=== PATIENT | female | born 1955 | race Hispanic/Latino ===

== ENCOUNTER → 2020-05-22 | Outpatient (CLI) | payer OTHER | LOC: MRI 08:52 | PROVIDERS: ATTEND Physician Assistant | DX: M54.42 Lumbago with sciatica, left side (principal); M54.41 Lumbago with sciatica, right side | CPT/HCPCS: 72148 ==

== ENCOUNTER 2022-05-09 12:38 | Inpatient (IN) | payer OTHER ==
[2022-05-06 09:18] LABS: BASOPHILS # (AUTO) 0.1 (0.0-0.1); BASOPHILS % 0.9 % (0.0-1.0); EOSINOPHILS # (AUTO) 0.3 (0.0-0.4); EOSINOPHILS % 4.9 % (0.0-6.0); HEMATOCRIT 42.4 % (34.2-44.1); HEMOGLOBIN 12.9 g/dL (12.0-16.0); LYMPHOCYTES # (AUTO) 2.2 (1.0-3.2); LYMPHOCYTES % 34.9 % (18.0-39.1); MEAN CORPUSCULAR HGB CONC 30.4 g/dL (31-35); MEAN CORPUSCULAR VOLUME 98.6 fL (81-99); MONOCYTES # (AUTO) 0.5 (0.2-0.8); MONOCYTES % 8.3 % (4.4-11.3); NEUTROPHILS # (AUTO) 3.2 (2.1-6.9); NEUTROPHILS % 50.1 % (38.7-80.0); PLATELET COUNT 246 x10e3/uL (140-360); RED CELL DISTRIBUTION WIDTH 13.9 % (11.7-14.4)
[2022-05-06 09:33] LABS: ANION GAP 15.2 mmol/L (8-16); CALCIUM 9.5 mg/dL (8.4-10.2); CREATININE, SERUM 0.75 mg/dL (0.57-1.11); POTASSIUM 4.2 mmol/L (3.5-5.1)
[~2022-05-09] VITALS: Ht 157.5 cm; Wt 82.6 kg
[~2022-05-09 12:38] MED LIST: BACITRACIN ZINC 15 GM OINT ONE; BUPIVACAINE/EPINEPHRINE 0.5% 10 ML SDV INJ ONE; DEXAMETHASONE SOD PHOS INJ 4 MG/ML SDV ONE; FAMOTIDINE20 MG PO; FENTANYL CITRATE/PF 100MCG/2 ML INJ ONE; GENTAMICIN SULFATE 40 MG/ML 2 ML VIAL ONE; GLYCOPYRROLATE INJ 0.2 MG/ML VIAL ONE; IOPAMIDOL 610MG/1ML 300 MG/ML VIAL IV ONE; LIDOCAINE HCL 2% LOCAL 20 ML VIAL ONE; LIDOCAINE HCL 2% LOCAL INJ 5 ML SDV VIAL INJ ONE; LISINOPRIL10 MG PO; METOPROLOL SUCC25 MG PO; MIDAZOLAM HCL 2 MG/2 ML VIAL ONE; NEOSTIGMINE 1 MG/ML 10ML VIAL ONE; ONDANSETRON HCL INJ 2MG/ML 2ML 2 MG/ML VIAL ONE; OXYBUTYNIN CHLOR5 MG PO; PHENYLEPHRINE HCL 1% 10 MG/ML VIAL ONE; POVIDONE IODINE 0.05% 0.05 % ML PO ONE; PROPOFOL IV EMULSION 10 MG/ML 20 ML VIAL ONE; PROTONIX20 MG PO; ROCURONIUM BROMIDE 10 MG/ML 5ML VIAL IV ONE; SEVOFLURANE INHAL SOLN 250 ML PEN BTL ONE; SUCCINYLCHOLINE CHLORIDE 20 MG/ML 10ML VIAL ONE
[2022-05-09] MEDS ORDERED: GENTAMICIN 80MG/NS 100 ML 200 ML IV ONE (13:01)
[2022-05-09] MEDS ORDERED: PIPERACILLIN/TAZOBACTAM 3.375 GM VIAL ONE (13:01)
[2022-05-09] MEDS ORDERED: FAMOTIDINE 20 MG/2 ML VIAL IV ONE (13:30)
[2022-05-09] MEDS ORDERED: DIPHENHYDRAMINE HCL 25 MG CAP PO PRN (13:45)
[2022-05-09] MEDS ORDERED: Morphine 2mg Syringe 2 MG/ML SYR IV PRN (13:45)
[2022-05-09] MEDS ORDERED: ONDANSETRON HCL INJ 2MG/ML 2ML 2 MG/ML VIAL IV PRN (13:45)
[2022-05-09] MEDS ORDERED: SUGAMMADEX SODIUM 200 MG/2 ML VIAL IV ONE (14:39)
[2022-05-09] MEDS ORDERED: HYDROMORPHONE 1MG/1ML INJ ONE (14:39)
[2022-05-09 16:05] LABS: BASOPHILS # (AUTO) 0.1 (0.0-0.1); BASOPHILS % 0.5 % (0.0-1.0); EOSINOPHILS # (AUTO) 0.2 (0.0-0.4); EOSINOPHILS % 1.8 % (0.0-6.0); HEMATOCRIT 41.5 % (34.2-44.1); HEMOGLOBIN 12.4 g/dL (12.0-16.0); LYMPHOCYTES # (AUTO) 2.3 (1.0-3.2); LYMPHOCYTES % 23.8 % (18.0-39.1); MEAN CORPUSCULAR HEMOGLOBIN 29.8 pg (28-32); MEAN CORPUSCULAR HGB CONC 29.9 g/dL (31-35); MEAN CORPUSCULAR VOLUME 99.8 fL (81-99); MONOCYTES # (AUTO) 0.3 (0.2-0.8); MONOCYTES % 2.7 % (4.4-11.3); NEUTROPHILS # (AUTO) 6.9 (2.1-6.9); NEUTROPHILS % 70.2 % (38.7-80.0); PLATELET COUNT 234 x10e3/uL (140-360); RED BLOOD COUNT 4.16 x10e6/uL (3.6-5.1); RED CELL DISTRIBUTION WIDTH 13.7 % (11.7-14.4)
[2022-05-09 16:15] VITALS: BP 110/67
[2022-05-09 16:16] LABS: ANION GAP 14.1 mmol/L (8-16); CALCIUM 8.5 mg/dL (8.4-10.2); CREATININE, SERUM 0.67 mg/dL (0.57-1.11); POTASSIUM 4.1 mmol/L (3.5-5.1)
[2022-05-09] MEDS: D5.45%NS/KCL 20MEQ 1,000 ML IV SCH (16:46)
[2022-05-09] MEDS ORDERED: DOCUSATE SODIUM 100 MG CAP PO SCH (17:00)
[2022-05-09 20:00] VITALS: BP 90/51
[2022-05-09] MEDS: DOCUSATE SODIUM 100 MG CAP PO SCH (21:17)
[2022-05-09] MEDS: ACETAMINOPHEN 1000 MG/100 ML IV PRN (21:27)
[2022-05-10] MEDS: ACETAMINOPHEN/CODEINE 300MG - 30MG TAB PO PRN ×2 (01:05→21:12)
[2022-05-10] MEDS: PHENAZOPYRIDINE HCL 100 MG TAB PO PRN (01:05)
[2022-05-10] MEDS: D5.45%NS/KCL 20MEQ 1,000 ML IV SCH ×2 (03:47→21:10)
[2022-05-10 05:10] LABS: BASOPHILS % 0.2 % (0.0-1.0); LYMPHOCYTES # (AUTO) 0.9 (1.0-3.2); LYMPHOCYTES % 7.2 % (18.0-39.1); MEAN CORPUSCULAR HEMOGLOBIN 30.1 pg (28-32); MEAN CORPUSCULAR HGB CONC 32.4 g/dL (31-35); MEAN CORPUSCULAR VOLUME 93.2 fL (81-99); MONOCYTES # (AUTO) 0.6 (0.2-0.8); MONOCYTES % 4.8 % (4.4-11.3); NEUTROPHILS # (AUTO) 10.5 (2.1-6.9); NEUTROPHILS % 87.1 % (38.7-80.0); PLATELET COUNT 209 x10e3/uL (140-360); RED BLOOD COUNT 3.65 x10e6/uL (3.6-5.1); RED CELL DISTRIBUTION WIDTH 13.7 % (11.7-14.4)
[2022-05-10 05:29] LABS: ANION GAP 11.7 mmol/L (8-16); CALCIUM 8.2 mg/dL (8.4-10.2); CREATININE, SERUM 0.71 mg/dL (0.57-1.11); POTASSIUM 4.7 mmol/L (3.5-5.1)
[2022-05-10] MEDS: ACETAMINOPHEN 1000 MG/100 ML IV PRN (05:33)
[2022-05-10 07:30] VITALS: BP 89/41
[2022-05-10 08:11] VITALS: BP 88/45
[2022-05-10 09:04] VITALS: BP 88/45
[2022-05-10] MEDS: DOCUSATE SODIUM 100 MG CAP PO SCH ×2 (09:46→21:11)
[2022-05-10] MEDS: PANTOPRAZOLE SOD 40 MG TABEC PO SCH (09:46)
[2022-05-10] MEDS: KETOROLAC TROMETHAMINE 30 MG/ML VIAL IM PRN ×2 (09:48→16:32)
[2022-05-10] MEDS ORDERED: ONDANSETRON HCL 4 MG ORAL DISINTEGRATING TAB PO PRN (11:15)
[2022-05-10 12:55] VITALS: BP 88/42
[2022-05-10 16:07] VITALS: BP 93/49
[2022-05-10 20:00] VITALS: BP 133/75
[2022-05-10 20:21] LABS: BASOPHILS % 0.4 % (0.0-1.0); HEMATOCRIT 34.3 % (34.2-44.1); HEMOGLOBIN 11.2 g/dL (12.0-16.0); LYMPHOCYTES % 17.3 % (18.0-39.1); MEAN CORPUSCULAR HEMOGLOBIN 30.3 pg (28-32); MEAN CORPUSCULAR HGB CONC 32.7 g/dL (31-35); MEAN CORPUSCULAR VOLUME 92.7 fL (81-99); NEUTROPHILS % 74.8 % (38.7-80.0); PLATELET COUNT 215 x10e3/uL (140-360); RED CELL DISTRIBUTION WIDTH 14.3 % (11.7-14.4)
[2022-05-11] VITALS (8 sets, daily range): BP systolic 93–122; BP diastolic 45–68
[2022-05-11] MEDS ORDERED: PIPERACILLIN/TAZOBACTAM 3.375 GM VIAL ONE (03:14)
[2022-05-11] MEDS: ACETAMINOPHEN/CODEINE 300MG - 30MG TAB PO PRN ×5 (03:39→22:26)
[2022-05-11 05:09] LABS: BASOPHILS % 0.4 % (0.0-1.0); EOSINOPHILS # (AUTO) 0.2 (0.0-0.4); EOSINOPHILS % 2.4 % (0.0-6.0); HEMOGLOBIN 10.3 g/dL (12.0-16.0); LYMPHOCYTES # (AUTO) 2.2 (1.0-3.2); LYMPHOCYTES % 25.2 % (18.0-39.1); MEAN CORPUSCULAR HEMOGLOBIN 30.5 pg (28-32); MEAN CORPUSCULAR HGB CONC 31.2 g/dL (31-35); MEAN CORPUSCULAR VOLUME 97.6 fL (81-99); MONOCYTES # (AUTO) 0.5 (0.2-0.8); MONOCYTES % 5.8 % (4.4-11.3); NEUTROPHILS # (AUTO) 5.8 (2.1-6.9); NEUTROPHILS % 65.6 % (38.7-80.0); PLATELET COUNT 195 x10e3/uL (140-360); RED BLOOD COUNT 3.38 x10e6/uL (3.6-5.1); RED CELL DISTRIBUTION WIDTH 14.2 % (11.7-14.4)
[2022-05-11 05:41] LABS: ANION GAP 10.2 mmol/L (8-16); CREATININE, SERUM 0.78 mg/dL (0.57-1.11); POTASSIUM 4.2 mmol/L (3.5-5.1)
[2022-05-11] MEDS: D5.45%NS/KCL 20MEQ 1,000 ML IV SCH ×2 (05:59→18:21)
[2022-05-11] MEDS: PANTOPRAZOLE SOD 40 MG TABEC PO SCH (09:47)
[2022-05-11] MEDS: DOCUSATE SODIUM 100 MG CAP PO SCH ×2 (09:47→21:00)
[2022-05-12] VITALS: BP 128/69
[2022-05-12] MEDS: ACETAMINOPHEN/CODEINE 300MG - 30MG TAB PO PRN ×2 (02:48→07:40)
[2022-05-12 04:00] VITALS: BP 113/55
[2022-05-12 04:38] LABS: BASOPHILS % 0.4 % (0.0-1.0); EOSINOPHILS # (AUTO) 0.3 (0.0-0.4); EOSINOPHILS % 4.1 % (0.0-6.0); HEMOGLOBIN 9.6 g/dL (12.0-16.0); LYMPHOCYTES # (AUTO) 2.1 (1.0-3.2); LYMPHOCYTES % 25.8 % (18.0-39.1); MEAN CORPUSCULAR HEMOGLOBIN 29.8 pg (28-32); MEAN CORPUSCULAR VOLUME 99.4 fL (81-99); MONOCYTES # (AUTO) 0.6 (0.2-0.8); MONOCYTES % 7.1 % (4.4-11.3); NEUTROPHILS # (AUTO) 5.1 (2.1-6.9); PLATELET COUNT 207 x10e3/uL (140-360); RED BLOOD COUNT 3.22 x10e6/uL (3.6-5.1); RED CELL DISTRIBUTION WIDTH 14.1 % (11.7-14.4)
[2022-05-12 04:45] VITALS: BP 113/55
[2022-05-12 05:04] LABS: ANION GAP 8.2 mmol/L (8-16); CALCIUM 8.3 mg/dL (8.4-10.2); CREATININE, SERUM 0.7 mg/dL (0.57-1.11); POTASSIUM 4.2 mmol/L (3.5-5.1)
[2022-05-12 07:31] VITALS: BP 112/55
[2022-05-12] MEDS: DOCUSATE SODIUM 100 MG CAP PO SCH (07:40)
[2022-05-12] MEDS: PHENAZOPYRIDINE HCL 100 MG TAB PO PRN (07:40)
[2022-05-12] MEDS: PANTOPRAZOLE SOD 40 MG TABEC PO SCH (07:40)
[2022-05-12] MEDS: D5.45%NS/KCL 20MEQ 1,000 ML IV SCH (08:02)
[2022-05-12 09:20] VITALS: BP 112/55
[2022-05-12 09:23] VITALS: BP 112/55
== END 2022-05-12 11:39 | disposition home health service (06) | DRG 748 ==
LOC: OR 12:38 → PACU V 13:43 → MED/SURG 16:00
PROVIDERS: ADMIT Internal Medicine; ATTEND Internal Medicine
PROC: 0JUC0KZ Supplement of Pelvic Region Subcutaneous Tissue and Fascia with Nonautologous Tissue Substitute, Open Approach (ICD-10-PCS; principal; 2022-05-09 13:18)
PROC: BT141ZZ Fluoroscopy of Kidneys, Ureters and Bladder using Low Osmolar Contrast (ICD-10-PCS; 2022-05-09 13:18)
DX: N81.10 Cystocele, unspecified (principal); E87.1 Hypo-osmolality and hyponatremia; N39.3 Stress incontinence (female) (male); N32.81 Overactive bladder; I95.9 Hypotension, unspecified; N39.41 Urge incontinence; N32.3 Diverticulum of bladder; E66.01 Morbid (severe) obesity due to excess calories; E83.51 Hypocalcemia; G47.33 Obstructive sleep apnea (adult) (pediatric); N95.2 Postmenopausal atrophic vaginitis; K21.9 Gastro-esophageal reflux disease without esophagitis; K76.0 Fatty (change of) liver, not elsewhere classified; E78.5 Hyperlipidemia, unspecified; Z68.33 Body mass index [BMI] 33.0-33.9, adult; Z90.49 Acquired absence of other specified parts of digestive tract; Z90.710 Acquired absence of both cervix and uterus; Z79.899 Other long term (current) drug therapy; Z87.440 Personal history of urinary (tract) infections; Z86.79 Personal history of other diseases of the circulatory system
CPT/HCPCS: 0223U; 36415; 71046; 74420; 80048; 83735; 85025; 94799; 99252; C1713; C1752; C1758; J0330; J1100; J1170; J1580; J1885; J2001; J2250; J2370; J2405; J2543; J2710; J3010

== ENCOUNTER 2022-05-26 22:40 | Emergency (ER) | payer OTHER ==
[~2022-05-26] VITALS: Ht 309.9 cm; Wt 82.6 kg
[~2022-05-26 22:40] MED LIST changes: -BACITRACIN ZINC 15 GM OINT ONE; -BUPIVACAINE/EPINEPHRINE 0.5% 10 ML SDV INJ ONE; -DEXAMETHASONE SOD PHOS INJ 4 MG/ML SDV ONE; -FENTANYL CITRATE/PF 100MCG/2 ML INJ ONE; -GENTAMICIN SULFATE 40 MG/ML 2 ML VIAL ONE; -GLYCOPYRROLATE INJ 0.2 MG/ML VIAL ONE; -IOPAMIDOL 610MG/1ML 300 MG/ML VIAL IV ONE; -LIDOCAINE HCL 2% LOCAL 20 ML VIAL ONE; -LIDOCAINE HCL 2% LOCAL INJ 5 ML SDV VIAL INJ ONE; -MIDAZOLAM HCL 2 MG/2 ML VIAL ONE; -NEOSTIGMINE 1 MG/ML 10ML VIAL ONE; -ONDANSETRON HCL INJ 2MG/ML 2ML 2 MG/ML VIAL ONE; -PHENYLEPHRINE HCL 1% 10 MG/ML VIAL ONE; -POVIDONE IODINE 0.05% 0.05 % ML PO ONE; -PROPOFOL IV EMULSION 10 MG/ML 20 ML VIAL ONE; -ROCURONIUM BROMIDE 10 MG/ML 5ML VIAL IV ONE; -SEVOFLURANE INHAL SOLN 250 ML PEN BTL ONE; -SUCCINYLCHOLINE CHLORIDE 20 MG/ML 10ML VIAL ONE
[2022-05-27 00:34] LABS: CLARITY,URINE SL CLOUDY (CLEAR); COLOR,URINE YELLOW (YELLOW)
[2022-05-27 00:35] LABS: BACTERIA,URINE FEW /HPF; EPITHELIAL CELLS,URINE FEW /LPF; KETONES,URINE NEGATIVE (NEGATIVE); LEUKOCYTE ESTERASE ,URINE NEGATIVE (NEGATIVE); MUCUS,URINE FEW (RARE); NITRITE,URINE NEGATIVE (NEGATIVE); PROTEIN,URINE DIPSTICK NEGATIVE (NEGATIVE); RBC,URINE 0-5 /HPF (0-5); TRANSITIONAL EPI CELLS,URINE FEW; URINE UROBILINOGEN 0.2 mg/dL (0.2 - 1)
== END 2022-05-27 01:12 | disposition home or self-care (01) ==
LOC: ER 22:50
DX: R33.9 Retention of urine, unspecified (principal); I10 Essential (primary) hypertension; K21.9 Gastro-esophageal reflux disease without esophagitis; Z86.12 Personal history of poliomyelitis
CPT/HCPCS: 51700; 81001; 87086; 99283

== ENCOUNTER 2022-08-02 17:51 | Emergency (ER) | payer OTHER ==
[~2022-08-02] VITALS: Ht 309.9 cm; Wt 82.6 kg
== END 2022-08-02 19:08 | disposition home or self-care (01) ==
LOC: ER 17:59
DX: R33.9 Retention of urine, unspecified (principal); I10 Essential (primary) hypertension; K21.9 Gastro-esophageal reflux disease without esophagitis; Z86.12 Personal history of poliomyelitis
CPT/HCPCS: 51700; 87086; 87186; 99282

== ENCOUNTER 2022-08-05 15:06 | Inpatient (IN) | payer OTHER ==
[~2022-08-05] VITALS: Ht 157.5 cm; Wt 82.6 kg
[2022-08-05 15:43] LABS: BASOPHILS # (AUTO) 0.1 (0.0-0.1); BASOPHILS % 0.7 % (0.0-1.0); EOSINOPHILS # (AUTO) 0.4 (0.0-0.4); EOSINOPHILS % 5.2 % (0.0-6.0); HEMATOCRIT 38.7 % (34.2-44.1); HEMOGLOBIN 12.5 g/dL (12.0-16.0); LYMPHOCYTES # (AUTO) 2.4 (1.0-3.2); LYMPHOCYTES % 33.7 % (18.0-39.1); MEAN CORPUSCULAR HEMOGLOBIN 29.7 pg (28-32); MEAN CORPUSCULAR HGB CONC 32.3 g/dL (31-35); MEAN CORPUSCULAR VOLUME 91.9 fL (81-99); MONOCYTES # (AUTO) 0.5 (0.2-0.8); MONOCYTES % 6.8 % (4.4-11.3); NEUTROPHILS # (AUTO) 3.8 (2.1-6.9); NEUTROPHILS % 52.8 % (38.7-80.0); PLATELET COUNT 262 x10e3/uL (140-360); RED BLOOD COUNT 4.21 x10e6/uL (3.6-5.1); RED CELL DISTRIBUTION WIDTH 13.4 % (11.7-14.4)
[2022-08-05] MEDS ORDERED: ONDANSETRON HCL INJ 2MG/ML 2ML 2 MG/ML VIAL IV PRN (15:45)
[2022-08-05 16:02] LABS: ALBUMIN 3.9 g/dL (3.5-5.0); ALBUMIN/GLOBULIN RATIO 1.1 (0.8-2.0); ANION GAP 12.7 mmol/L (8-16); CREATININE, SERUM 0.67 mg/dL (0.57-1.11); POTASSIUM 3.7 mmol/L (3.5-5.1)
[2022-08-05] MEDS ORDERED: HYDROCODONE/APAP 10MG-325MG TAB PO ONE (16:45)
[2022-08-05] MEDS: SODIUM CHLORIDE 0.9% 1000ML 1,000 ML IV SCH (19:05)
[2022-08-05 20:00] VITALS: BP 131/62
[2022-08-05 22:00] VITALS: BP 131/62
[2022-08-05] MEDS: ACETAMINOPHEN 325 MG TAB PO PRN (23:30)
[2022-08-06] VITALS (9 sets, daily range): BP systolic 115–145; BP diastolic 61–91
[2022-08-06] MEDS: SODIUM CHLORIDE 0.9% 1000ML 1,000 ML IV SCH (05:34)
[2022-08-06 07:18] LABS: BASOPHILS % 0.6 % (0.0-1.0); EOSINOPHILS # (AUTO) 0.4 (0.0-0.4); EOSINOPHILS % 5.3 % (0.0-6.0); HEMATOCRIT 35.6 % (34.2-44.1); HEMOGLOBIN 11.4 g/dL (12.0-16.0); LYMPHOCYTES # (AUTO) 2.2 (1.0-3.2); LYMPHOCYTES % 31.7 % (18.0-39.1); MEAN CORPUSCULAR HEMOGLOBIN 29.5 pg (28-32); MEAN CORPUSCULAR VOLUME 92.2 fL (81-99); MONOCYTES # (AUTO) 0.6 (0.2-0.8); NEUTROPHILS # (AUTO) 3.7 (2.1-6.9); NEUTROPHILS % 53.4 % (38.7-80.0); PLATELET COUNT 230 x10e3/uL (140-360); RED BLOOD COUNT 3.86 x10e6/uL (3.6-5.1); RED CELL DISTRIBUTION WIDTH 13.5 % (11.7-14.4)
[2022-08-06 07:36] LABS: ALBUMIN 3.2 g/dL (3.5-5.0); ALBUMIN/GLOBULIN RATIO 1.1 (0.8-2.0); ANION GAP 9.4 mmol/L (8-16); CALCIUM 8.5 mg/dL (8.4-10.2); CREATININE, SERUM 0.7 mg/dL (0.57-1.11); POTASSIUM 4.4 mmol/L (3.5-5.1)
[2022-08-06] MEDS: METOPROLOL SUCCINATE 25 MG TAB XL PO SCH (10:30)
[2022-08-06] MEDS ORDERED: FLOMAX0.4 MG PO (12:47)
[2022-08-06] MEDS ORDERED: BROMPHENIR-PSE118 ML PO (12:47)
[2022-08-06] MEDS ORDERED: ZITHROMAX250 MG PO (12:48)
[2022-08-06] MEDS: LISINOPRIL 20 MG TAB PO SCH (12:51)
[2022-08-06] MEDS: PANTOPRAZOLE SOD 40 MG TABEC PO SCH (12:51)
[2022-08-06] MEDS: ACETAMINOPHEN 325 MG TAB PO PRN (20:32)
[2022-08-07] VITALS (8 sets, daily range): BP systolic 122–146; BP diastolic 63–81
[2022-08-07] MEDS: PANTOPRAZOLE SOD 40 MG TABEC PO SCH (08:49)
[2022-08-07] MEDS: LISINOPRIL 20 MG TAB PO SCH (08:49)
[2022-08-07] MEDS: FAMOTIDINE 20 MG TAB PO SCH (08:50)
[2022-08-07] MEDS: METOPROLOL SUCCINATE 25 MG TAB XL PO SCH (08:52)
[2022-08-07] MEDS: TAMSULOSIN HCL 0.4 MG CAP PO SCH (17:32)
[2022-08-07] MEDS: ACETAMINOPHEN 325 MG TAB PO PRN (23:42)
[2022-08-08] VITALS (8 sets, daily range): BP systolic 110–127; BP diastolic 61–88
[2022-08-08 06:59] LABS: ANION GAP 14.2 mmol/L (8-16); CALCIUM 8.8 mg/dL (8.4-10.2); CREATININE, SERUM 0.73 mg/dL (0.57-1.11); POTASSIUM 4.2 mmol/L (3.5-5.1)
[2022-08-08] MEDS: LISINOPRIL 20 MG TAB PO SCH (09:04)
[2022-08-08] MEDS: METOPROLOL SUCCINATE 25 MG TAB XL PO SCH (09:04)
[2022-08-08] MEDS: PANTOPRAZOLE SOD 40 MG TABEC PO SCH (09:05)
[2022-08-08] MEDS: FAMOTIDINE 20 MG TAB PO SCH (09:05)
[2022-08-08] MEDS ORDERED: ONDANSETRON HCL 4 MG ORAL DISINTEGRATING TAB PO PRN (14:30)
[2022-08-08] MEDS: TAMSULOSIN HCL 0.4 MG CAP PO SCH (16:38)
[2022-08-09] VITALS (8 sets, daily range): BP systolic 118–146; BP diastolic 62–74
[2022-08-09] MEDS: PANTOPRAZOLE SOD 40 MG TABEC PO SCH (08:56)
[2022-08-09] MEDS: LISINOPRIL 20 MG TAB PO SCH (08:56)
[2022-08-09] MEDS: FAMOTIDINE 20 MG TAB PO SCH (08:56)
[2022-08-09] MEDS: METOPROLOL SUCCINATE 25 MG TAB XL PO SCH (08:57)
[2022-08-09] MEDS ORDERED: PHENAZOPYRIDINE HCL 100 MG TAB PO PRN ×2 (15:15)
[2022-08-09] MEDS: TAMSULOSIN HCL 0.4 MG CAP PO SCH (17:41)
[2022-08-09] MEDS: PHENAZOPYRIDINE HCL 100 MG TAB PO PRN (18:05)
[2022-08-10] VITALS (7 sets, daily range): BP systolic 116–134; BP diastolic 62–74
[2022-08-10] MEDS: PHENAZOPYRIDINE HCL 100 MG TAB PO PRN (05:12)
[2022-08-10] MEDS: PANTOPRAZOLE SOD 40 MG TABEC PO SCH (10:05)
[2022-08-10] MEDS: METOPROLOL SUCCINATE 25 MG TAB XL PO SCH (10:05)
[2022-08-10] MEDS: FAMOTIDINE 20 MG TAB PO SCH (10:05)
[2022-08-10] MEDS: LISINOPRIL 20 MG TAB PO SCH (10:06)
[2022-08-10] MEDS: ACETAMINOPHEN 325 MG TAB PO PRN ×2 (16:30→23:00)
[2022-08-10] MEDS: TAMSULOSIN HCL 0.4 MG CAP PO SCH (17:31)
[2022-08-11] VITALS (8 sets, daily range): BP systolic 108–126; BP diastolic 60–87
[2022-08-11] MEDS ORDERED: CEFEPIME HCL 1 GM VIAL ONE (05:55)
[2022-08-11] MEDS: FAMOTIDINE 20 MG TAB PO SCH (08:53)
[2022-08-11] MEDS: PANTOPRAZOLE SOD 40 MG TABEC PO SCH (08:54)
[2022-08-11] MEDS: LISINOPRIL 20 MG TAB PO SCH (08:54)
[2022-08-11] MEDS: METOPROLOL SUCCINATE 25 MG TAB XL PO SCH (08:54)
[2022-08-11] MEDS: PHENAZOPYRIDINE HCL 100 MG TAB PO PRN ×3 (08:57→22:09)
[2022-08-11] MEDS ORDERED: ACETAMINOPHEN 325 MG TAB PO PRN (09:45)
[2022-08-11 10:19] LABS: BASOPHILS # (AUTO) 0.1 (0.0-0.1); BASOPHILS % 0.9 % (0.0-1.0); EOSINOPHILS # (AUTO) 0.4 (0.0-0.4); EOSINOPHILS % 6.5 % (0.0-6.0); HEMOGLOBIN 12.6 g/dL (12.0-16.0); LYMPHOCYTES # (AUTO) 1.5 (1.0-3.2); LYMPHOCYTES % 22.5 % (18.0-39.1); MEAN CORPUSCULAR HEMOGLOBIN 29.2 pg (28-32); MEAN CORPUSCULAR HGB CONC 32.3 g/dL (31-35); MEAN CORPUSCULAR VOLUME 90.3 fL (81-99); MONOCYTES # (AUTO) 0.4 (0.2-0.8); MONOCYTES % 5.9 % (4.4-11.3); NEUTROPHILS # (AUTO) 4.3 (2.1-6.9); NEUTROPHILS % 63.6 % (38.7-80.0); PLATELET COUNT 262 x10e3/uL (140-360); RED BLOOD COUNT 4.32 x10e6/uL (3.6-5.1); RED CELL DISTRIBUTION WIDTH 13.1 % (11.7-14.4)
[2022-08-11 10:40] LABS: ANION GAP 11.9 mmol/L (8-16); CREATININE, SERUM 0.67 mg/dL (0.57-1.11); POTASSIUM 3.9 mmol/L (3.5-5.1)
[2022-08-11] MEDS: LACTOBACILLUS ACIDOPHILUS CAPSULE PO SCH ×2 (12:27→21:35)
[2022-08-11] MEDS: SENNA-S TABLET PO SCH ×2 (12:27→17:00)
[2022-08-11] MEDS: GABAPENTIN 100 MG CAP PO SCH ×3 (12:28→21:35)
[2022-08-11] MEDS: TAMSULOSIN HCL 0.4 MG CAP PO SCH (17:34)
[2022-08-12 00:18] VITALS: BP 122/72
[2022-08-12 04:00] VITALS: BP 112/59
[2022-08-12] MEDS: PHENAZOPYRIDINE HCL 100 MG TAB PO PRN (05:43)
[2022-08-12] MEDS: GABAPENTIN 100 MG CAP PO SCH (05:43)
[2022-08-12 07:44] VITALS: BP 112/59
[2022-08-12 08:24] VITALS: BP 134/60
[2022-08-12] MEDS: SENNA-S TABLET PO SCH (08:56)
[2022-08-12] MEDS: PANTOPRAZOLE SOD 40 MG TABEC PO SCH (08:56)
[2022-08-12] MEDS: METOPROLOL SUCCINATE 25 MG TAB XL PO SCH (08:57)
[2022-08-12] MEDS: LACTOBACILLUS ACIDOPHILUS CAPSULE PO SCH (08:57)
[2022-08-12] MEDS: FAMOTIDINE 20 MG TAB PO SCH (08:57)
[2022-08-12] MEDS: LISINOPRIL 20 MG TAB PO SCH (08:57)
== END 2022-08-12 11:45 | disposition home or self-care (01) | DRG 699 ==
LOC: ER 15:13 → ERHOLD 15:43 → MED/SURG3 20:20
PROVIDERS: ADMIT Internal Medicine; ATTEND Internal Medicine
DX: T83.511A Infection and inflammatory reaction due to indwelling urethral catheter, initial encounter (principal); Z16.24 Resistance to multiple antibiotics; B96.5 Pseudomonas (aeruginosa) (mallei) (pseudomallei) as the cause of diseases classified elsewhere; R33.9 Retention of urine, unspecified; E66.01 Morbid (severe) obesity due to excess calories; Z68.33 Body mass index [BMI] 33.0-33.9, adult; N81.4 Uterovaginal prolapse, unspecified; N30.90 Cystitis, unspecified without hematuria; Z20.822 Contact with and (suspected) exposure to COVID-19; K21.9 Gastro-esophageal reflux disease without esophagitis; G62.9 Polyneuropathy, unspecified
CPT/HCPCS: 0223U; 36415; 80048; 80053; 85025; 87040; 96361; 99284; J0692; J7030